=== PATIENT | female | born 1995 | race African-American/Black ===

== ENCOUNTER 2018-09-04 14:56 | Emergency (ER) | payer OTHER ==
[~2018-09-04] VITALS: Ht 165.1 cm; Wt 52.1 kg
[2018-09-04 15:02] VITALS: BP 118/62; PULSE 123; RESP 18; Ht 165.1 cm; Wt 52.1 kg
--- NOTE | 2018-09-04 15:30 | ERD ---
ER Documentation Chief Complaint Chief Complaint left pelvic pain this morning sent from urgent care HPI 23-year-old female, previously healthy, presents the emergency department, referred by urgent care for evaluation of left pelvic pain. The patient states that she has had the pain, intermittently, since August 20 when she returned from [place], the pain is colicky, intermittent, 6/10. She denies diarrhea or constipation, however, the bowel movements are looser than average, no mucus or blood, denies nausea, vomiting, no diarrhea or constipation. No fever or chil ls. ROS All systems reviewed and are negative except as per history of present illness. Medications Home Meds Active Scripts Ibuprofen* (Motrin*) 400 Mg Tab, 400 MG PO Q8, #15 TAB Prov:RINKU WEST MD 09/04/18 Ciprofloxacin Hcl* (Ciprofloxacin Hcl*) 250 Mg Tablet, 250 MG PO BID, #10 TAB Prov:RINKU WEST MD 09/04/18 Allergies Allergies: Coded Allergies: No Known Allergy (Unverified , 09/04/18) FmHx Family History: No diabetes, No coronary disease Physical Exam Vitals Physical Exam Const: No acute distress Head: Atraumatic Eyes: Normal Conjunctiva ENT: Normal External Ears, Nose and Mouth. Neck: Full range of motion. No meningismus. Resp: Clear to auscultation bilaterally Cardio: Regular rate and rhythm, no murmurs Abd: Soft, tenderness to palpation of the left lower quadrant, no definitive peritoneal signs, non distended. Normal bowel sounds Skin: No petechiae or rashes Back: No midline or flank tenderness Ext: No cyanosis, or edema Neur: Awake and alert Psych: Normal Mood and Affect Results 24 hrs Laboratory Tests Test 09/04/18 15:41 09/04/18 15:42 09/04/18 15:50 Bedside Urine pH (LAB) 7.0 Bedside Urine Protein (LAB) Negative Bedside Urine Glucose (UA) Negative Bedside Urine Ketones (LAB) 2+ Bedside Urine Blood Negative Bedside Urine Nitrite (LAB) Negative Bedside Urine Leukocyte Esterase Negative (L POC Beta HCG, Qualitative NEGATIVE White Blood Count 13.5 10^3/ul Red Blood Count 4.52 10^6/ul Hemoglobin 12.0 g/dl Hematocrit 38.4 % Mean Corpuscular Volume 85.0 fl Mean Corpuscular Hemoglobin 26.5 pg Mean Corpuscular 31.3 g/dl Hemoglobin Concent Red Cell Distribution Width 12.4 % Platelet Count 314 10^3/UL Mean Platelet Volume 9.3 fl Immature Granulocytes % 0.400 % Neutrophils % 84.1 % Lymphocytes % 9.0 % Monocytes % 6.4 % Eosinophils % 0.0 % Basophils % 0.1 % Nucleated Red Blood Cells % 0.0 /100WBC Immature Granulocytes # 0.060 10^3/ul Neutrophils # 11.4 10^3/ul Lymphocytes # 1.2 10^3/ul Monocytes # 0.9 10^3/ul Eosinophils # 0.0 10^3/ul Basophils # 0.0 10^3/ul Nucleated Red Blood Cells # 0.0 10^3/ul Sodium Level 138 mmol/L Potassium Level 4.2 mmol/L Chloride Level 102 mmol/L Carbon Dioxide Level 25 mmol/L Anion Gap 11 Blood Urea Nitrogen 7 mg/dl Creatinine 0.68 mg/dl Est Glomerular Filtrat Rate mL/min > 60 mL/min Glucose Level 97 mg/dl Calcium Level 9.4 mg/dl Current Medications Medications Dose Sig/Fitz Start Time Status Last (Trade) Ordered Route PRN Stop Time Admin Dose Reason Admin Ibuprofen 600 mg ONCE ONCE 09/04/18 DC 09/04/18 (Motrin) PO 16:00 15:52 09/04/18 16:01 650 mg ONCE ONCE 09/04/18 DC 09/04/18 Acetaminophen PO 16:00 15:52 (Tylenol 09/04/18 16:01 Tab) Procedures/MDM Physical exam unremarkable, patient in no distress, hydrated, adequate oral intake, abdomen, soft, nontender, no peritoneal signs. Differential diagnosis include but not limited to: gastrointestinal infection bacterial/viral, UTI, appendicitis, colitis, food poisoning, food intolerance. Low suspicion for acute abdomen Physical examination and clinical presentation consistent most likely with gastroenteritis. During the ED course the patient remained stable, overall improvement of the sym ptoms after receiving treatment in the emergency department. Clinical impression discussed with the patient and her boyfriend her who agreed with management. The patient is stable to be discharged home, Some side effects of prescribed medications (headache, rash, nausea, vomiting, diarrhea, interactions with other medications) were reviewed. The patient requires a follow up with the primary care provider in the next 48h. If symptoms persist, worsen or new symptoms develop, then patient should return to the ED immediately. Disclaimer: Inadvertent spelling and grammatical errors are likely due to EHR/dictation software use and do not reflect on the overall quality of patient care. Also, please note that the electronic time recorded on this note does not necessarily reflect the actual time of the patient encounter. Departure Diagnosis: Primary Impression: Infectious gastroenteritis Additional Impression: History of recent foreign travel Condition: Stable Additional Instructions: Thank you very much for allowing us to participate in your care. Your health and safety is our top priority at [facility]. Call your primary care doctor TOMORROW for an appointment during the next 2-4 days and bring all the information and medications prescribed. Have prescriptions filled and follow precisely the directions on the label. If the symptoms get worse and your provider is unavailable, return to the Emergency Department immediately. RINKU WEST MD Sep 04, 2018 15:30
[2018-09-04] MEDS ORDERED: IBUPROFEN 600 MG TAB PO ONE (16:00)
[2018-09-04] MEDS ORDERED: ACETAMINOPHEN 325 MG TAB PO ONE (16:00)
[2018-09-04] MEDS ORDERED: CIPR-193 PO (17:05)
[2018-09-04] MEDS ORDERED: IBUP-1561 PO (17:05)
== END 2018-09-04 17:19 | disposition home or self-care (01) ==
LOC: FTE 14:56
DX: A09 Infectious gastroenteritis and colitis, unspecified (principal)
CPT/HCPCS: 76830; 76856; 80048; 81003; 81025; 85025